=== PATIENT | female | born 1950 | race Caucasian/White ===

== ENCOUNTER 2018-10-18 15:14 | Emergency (ER) | payer OTHER ==
--- NOTE | 2018-10-18 16:15 | RAD REPORT ---
EXAM DESCRIPTION: RAD - Foot Left 3 View - 10/18/2018 4:02 pm CLINICAL HISTORY: Left Foot pain status post injury FINDINGS: No fracture or dislocation is seen.
--- NOTE | 2018-10-18 16:25 | ER ---
Nurse's Notes [facility] Name: Cindy Caputo Age: 68 yrs Sex: Female : 1950 Arrival Date: 10/18/2018 Time: 15:16 Bed 12 Private MD: Julio C Still R Diagnosis: Contusion of left great toe without damage to nail Presentation: 10/18 15:20 Presenting complaint: Patient states: I dropped a glass on to my left big toe and I la1 want to make sure its not broken. Transition of care: patient was not received from another setting of care. Onset of symptoms was October 18, 2018. Risk Assessment: Do you want to hurt yourself or someone else? Patient reports no desire to harm self or others. Initial Sepsis Screen: Does the patient meet any 2 criteria? No. Patient's initial sepsis screen is negative. Does the patient have a suspected source of infection? No. Patient's initial sepsis screen is negative. Care prior to arrival: None. 15:20 Method Of Arrival: Wheelchair la1 15:20 Acuity: COREY 4 la1 Historical: - Allergies: 15:19 PENICILLINS; la1 15:19 Keflex; la1 15:19 Doxycycline; la1 15:19 Tetracycline; la1 15:19 Feldene; la1 15:19 lodine; la1 - PMHx: 15:19 ankylosing spondylitis; Hypothyroidism; GERD; la1 - Immunization history:: Adult Immunizations up to date. - Social history:: Smoking status: Patient/guardian denies using tobacco. - Ebola Screening: : No symptoms or risks identified at this time. Screenin:22 Abuse screen: Denies threats or abuse. Denies injuries from another. Nutritional la1 screening: No deficits noted. Tuberculosis screening: No symptoms or risk factors identified. Fall Risk None identified. Assessment: 15:22 General: Appears in no apparent distress. Behavior is calm, cooperative. Pain: la1 Complains of pain in left first toe. Neuro: Level of Consciousness is awake, alert, obeys commands, Oriented to person, place, time, situation. Cardiovascular: Capillary refill < 3 seconds Patient's skin is warm and dry. Respiratory: Airway is patent Respiratory effort is even, unlabored. GI: No signs and/or symptoms were reported involving the gastrointestinal system. : No signs and/or symptoms were reported regarding the genitourinary system. Musculoskeletal: Swelling present in left first toe. 16:15 Reassessment: Patient appears in no apparent distress at this time. Patient and/or hb family updated on plan of care and expected duration. Pain level reassessed. Patient is alert, oriented x 3, equal unlabored respirations, skin warm/dry/pink. Vital Signs: 15:21 Pulse 72; Resp 18; Temp 97.1; Pulse Ox 98% on R/A; Weight 68.95 kg; Height 5 ft. 4 in. la1 (162.56 cm); 15:23 BP 203 / 63; la1 15:21 Body Mass Index 26.09 (68.95 kg, 162.56 cm) la1 ED Course: 15:16 Patient arrived in ED. sb2 15:16 Julio C Still MD is Private Physician. sb2 15:20 Triage completed. la1 15:20 Arm band placed on left wrist. la1 15:22 Diaz Clinton RN is Primary Nurse. la1 15:22 Lona Bucio FNP-C is PHCP. kb 15:22 Alejandro Olivares MD is Attending Physician. kb 15:23 Call light in reach. la1 16:02 Foot Left 3 View XRAY In Process Unspecified. EDMS 16:49 No provider procedures requiring assistance completed. Patient did not have IV access hb during this emergency room visit. Administered Medications: No medications were administered Outcome: 16:25 Discharge ordered by MD. kb 16:49 Discharged to home ambulatory, with family. 16:49 Condition: stable 16:49 Discharge instructions given to patient, Instructed on discharge instructions, follow up and referral plans. medication usage, Demonstrated understanding of instructions, follow-up care, medications. 16:49 Patient left the ED. hb Signatures: Dispatcher [employer] EDMS Lona Bucio FNP-C FNP-Diaz Sanchez RN RN la1 Carla Craven RN RN hb Billeau, Sheri sb2
--- NOTE | 2018-10-18 16:25 | EDPHYS ---
Physician Documentation [facility] Name: Cindy Caputo Age: 68 yrs Sex: Female : 1950 Arrival Date: 10/18/2018 Time: 15:16 Bed 12 Private MD: Julio C Still R ED Physician Alejandro Olivares HPI: 10/18 15:40 This 68 yrs old Female presents to ER via Wheelchair with complaints of Toe kb Injury. 15:40 The patient presents with a contusion, pain, swelling, tenderness. The complaints kb affect the left foot. Context: The problem was sustained at home, resulted from a heavy object falling, a cup or glass, the patient can fully bear weight, the patient is able to ambulate. Onset: The symptoms/episode began/occurred this morning. Modifying factors: The symptoms are alleviated by nothing, the symptoms are aggravated by nothing. Associated signs and symptoms: Pertinent positives: swelling, Pertinent negatives: calf tenderness, fever, nausea, numbness, rash, tingling, vomiting, warmth, weakness. Severity of symptoms: At their worst the symptoms were moderate, in the emergency department the symptoms are unchanged. The patient has not experienced similar symptoms in the past. The patient has not recently seen a physician. Historical: - Allergies: 15:19 PENICILLINS; la1 15:19 Keflex; la1 15:19 Doxycycline; la1 15:19 Tetracycline; la1 15:19 Feldene; la1 15:19 lodine; la1 - PMHx: 15:19 ankylosing spondylitis; Hypothyroidism; GERD; la1 - Immunization history:: Adult Immunizations up to date. - Social history:: Smoking status: Patient/guardian denies using tobacco. - Ebola Screening: : No symptoms or risks identified at this time. ROS: 15:39 Constitutional: Negative for fever, chills, and weight loss, Cardiovascular: Negative kb for chest pain, palpitations, and edema, Respiratory: Negative for shortness of breath, cough, wheezing, and pleuritic chest pain, Abdomen/GI: Negative for abdominal pain, nausea, vomiting, diarrhea, and constipation, Back: Negative for injury and pain, : Negative for injury, bleeding, discharge, and swelling, Skin: Negative for injury, rash, and discoloration, Neuro: Negative for headache, weakness, numbness, tingling, and seizure. 15:39 MS/extremity: Positive for pain, swelling, tenderness, of the left first toe. Exam: 15:39 Constitutional: This is a well developed, well nourished patient who is awake, alert, kb and in no acute distress. Head/Face: Normocephalic, atraumatic. Chest/axilla: Normal chest wall appearance and motion. Nontender with no deformity. No lesions are appreciated. Cardiovascular: Regular rate and rhythm with a normal S1 and S2. No gallops, murmurs, or rubs. Normal PMI, no JVD. No pulse deficits. Respiratory: Lungs have equal breath sounds bilaterally, clear to auscultation and percussion. No rales, rhonchi or wheezes noted. No increased work of breathing, no retractions or nasal flaring. Abdomen/GI: Soft, non-tender, with normal bowel sounds. No distension or tympany. No guarding or rebound. No evidence of tenderness throughout. Skin: Warm, dry with normal turgor. Normal color with no rashes, no lesions, and no evidence of cellulitis. Neuro: Awake and alert, GCS 15, oriented to person, place, time, and situation. Cranial nerves II-XII grossly intact. Motor strength 5/5 in all extremities. Sensory grossly intact. Cerebellar exam normal. Normal gait. 15:39 Musculoskeletal/extremity: Extremities: grossly normal except: noted in the left first toe: contusion, pain, swelling, tenderness, ROM: intact in all extremities, Circulation is intact in all extremities. Sensation intact. Weight bearing: able to fully bear weight. Vital Signs: 15:21 Pulse 72; Resp 18; Temp 97.1; Pulse Ox 98% on R/A; Weight 68.95 kg; Height 5 ft. 4 in. la1 (162.56 cm); 15:23 BP 203 / 63; la1 15:21 Body Mass Index 26.09 (68.95 kg, 162.56 cm) la1 MDM: 15:23 Patient medically screened. kb 15:39 Data reviewed: vital signs, nurses notes. Data interpreted: Pulse oximetry: on room air kb is 98 %. Interpretation: normal. 16:24 Counseling: I had a detailed discussion with the patient and/or guardian regarding: the kb historical points, exam findings, and any diagnostic results supporting the discharge/admit diagnosis, radiology results, the need for outpatient follow up, a family practitioner, to return to the emergency department if symptoms worsen or persist or if there are any questions or concerns that arise at home. 10/18 15:28 Order name: Foot Left 3 View XRAY; Complete Time: 16:18 kb Administered Medications: No medications were administered Disposition: 17:26 Co-signature as Attending Physician, Alejandro Olivares MD. rn Disposition: 10/18/18 16:25 Discharged to Home. Impression: Contusion of left great toe without damage to nail. - Condition is Stable. - Discharge Instructions: Foot Contusion, [id number]. - Medication Reconciliation Form, Thank You Letter, Antibiotic Education, Prescription Opioid Use form. - Follow up: Emergency Department; When: As needed; Reason: Worsening of condition. Follow up: Private Physician; When: 2 - 3 days; Reason: Recheck today's complaints, Continuance of care, Re-evaluation by your physician. Signatures: Dispatcher [employer] EDMS Lona Bucio, ABRASIVE MIXER-C ABRASIVE MIXER-Ckb Alejandro Olivares MD MD rn Attema, Lee, RN RN la1 Carla Craven RN RN hb Corrections: (The following items were deleted from the chart) 16:49 16:25 10/18/2018 16:25 Discharged to Home. Impression: Contusion of left great toe hb without damage to nail. Condition is Stable. Forms are Medication Reconciliation Form, Thank You Letter, Antibiotic Education, Prescription Opioid Use. Follow up: Emergency Department; When: As needed; Reason: Worsening of condition. Follow up: Private Physician; When: 2 - 3 days; Reason: Recheck today's complaints, Continuance of care, Re-evaluation by your physician. kb
== END 2018-10-18 16:49 | disposition home or self-care (01) ==
LOC: ER 15:14
DX: S90.112A Contusion of left great toe without damage to nail, initial encounter (principal); W20.8XXA Other cause of strike by thrown, projected or falling object, initial encounter; Y92.009 Unspecified place in unspecified non-institutional (private) residence as the place of occurrence of the external cause
CPT/HCPCS: 99283

== ENCOUNTER 2024-08-25 18:09 | Emergency (ER) | payer OTHER, MEDICARE ==
[2024-08-25] MEDS ORDERED: KETOROLAC 30 MG/ML INJ ONE (19:14)
--- NOTE | 2024-08-25 19:46 | EDPHYS ---
Physician Documentation [facility] Name: Cindy Caputo Age: 74 yrs Sex: Female : 1950 Arrival Date: 08/25/2024 Time: 18:09 Bed 23 Private MD: ED Physician Alejandro Olivares HPI: 08/25 19:44 This 74 yrs old Female presents to ER via Ambulatory with complaints of Fall Injury, kb Shoulder Pain. 19:44 Pt is a 74 year old female who presents for left shoulder pain after falling. States kb she was getting up from a table where she was wrapping presents and her foot got caught causing her to fall. States she hit her left shoulder on a table then fell to the ground. Denies head injury or loc. Denies any other pain. . Historical: - Allergies: 18:19 Doxycycline; tm6 18:19 Feldene; tm6 18:19 Tetracycline; tm6 18:19 Keflex; tm6 18:19 Lodine; tm6 18:19 PENICILLINS; tm6 - PMHx: 18:19 GERD; Hypothyroidism; Ankylosing Spondylitis; tm6 - PSHx: 18:19 cataracts (Ankylosing Spondylitis); knee (Ankylosing Spondylitis); D\T\C (Ankylosing tm6 Spondylitis); tubal ligation (Ankylosing Spondylitis); - Immunization history:: Flu vaccine is up to date. - Infectious Disease History:: Denies. - Social history:: Smoking status: Patient denies any tobacco usage or history of. ROS: 19:42 Constitutional: As per HPI kb Exam: 19:42 Constitutional: This is a well developed, well nourished patient who is awake, alert, kb and in no acute distress. Head/Face: Normocephalic, atraumatic. ENT: Moist Mucous membranes Neck: Trachea midline and no cervical lymphadenopathy. Supple, full range of motion without nuchal rigidity, or vertebral point tenderness. No Meningismus. Cardiovascular: Regular rate Respiratory: Respirations even and unlabored. No increased work of breathing. Talking in full sentences Skin: Warm, dry with normal turgor. Normal color. Neuro: Awake and alert, GCS 15, oriented to person, place, time, and situation. 19:42 Musculoskeletal/extremity: Extremities: grossly normal except: noted in the anterior aspect of left shoulder: decreased ROM, pain, tenderness, ROM: limited active range of motion, limited active range of motion due to pain, Circulation is intact in all extremities. Sensation intact. Vital Signs: 18:17 Temp 97.7(O); tm6 18:18 BP 207 / 73; Pulse 73; Resp 18; Pulse Ox 96% ; MAP 110 mmHg; Weight 68.04 kg; Height 5 tm6 ft. 4 in. ; Pain 8/10; 20:55 BP 186 / 70; Pulse 72; Resp 18; Temp 98.1; Pulse Ox 97% ; me1 18:18 Body Mass Index 25.75 (68.04 kg, 162.56 cm) tm6 18:18 Pain Scale: Adult tm6 MDM: 18:25 Medical Screening Exam initiated kb 19:43 Differential diagnosis: contusion, fracture, sprain. Data reviewed: vital signs, nurses kb notes. Counseling: I had a detailed discussion with the patient and/or guardian regarding the historical points, exam findings, and any diagnostic results supporting the discharge/admit diagnosis, radiology results, the need for outpatient follow up, a orthopedic surgeon, to return to the emergency department if symptoms worsen or persist or if there are any questions or concerns that arise at home. 19:46 Independent interpretation of the following test(s) in the Emergency Department X-Ray: kb My interpretation is displaced fracture proximal humerus. 08/25 18:29 Order name: Humerus Left XRAY; Complete Time: 19:53 kb 08/25 19:38 Order name: Sling; Complete Time: 20:55 kb Administered Medications: 19:16 Drug: Ketorolac IM 30 mg IM once Route: IM; Site: right deltoid; me1 19:36 Follow up: Response: No adverse reaction; Pain is decreased me1 19:42 CANCELLED (Duplicate Order): [id number] mg PO once kb 19:53 Drug: traMADol PO 50 mg PO once Route: PO; me1 20:55 Follow up: Response: No adverse reaction; Pain is decreased me1 Disposition: 08/26 16:16 Co-signature as Attending Physician, Alejandro Olivares MD I reviewed the patient's care rn provided by the Advanced Practice Provider and agree with the diagnosis and treatment plan. Disposition Summary: 08/25/24 19:45 Discharge Ordered Notes: Location: Home kb Condition: Stable kb Diagnosis - Displaced fracture of proximal humerus, left kb - Fall on same level, unspecified kb Followup: kb - With: Emergency Department - When: As needed - Reason: Worsening of condition Followup: kb - With: Private Physician - When: 2 - 3 days - Reason: Recheck today's complaints, Continuance of care, Re-evaluation by your physician Discharge Instructions: - Discharge Summary Sheet kb - Humerus Fracture Treated With ORIF kb - Humerus Fracture Treated With Immobilization, [id number] kb Forms: - Medication Reconciliation Form kb - Antibiotic Education kb - Prescription Opioid Use kb - Patient Portal Instructions kb - Leadership Thank You Letter kb Prescriptions: - Tramadol 50 mg Oral Tablet - take 1 tablet ORAL route every 8 hours as needed; 12 tablet; Refills: 0, kb Product Selection Permitted Signatures: Dispatcher [employer] EDMS Lona Bucio FNP-C FNP-Alejandro Morrissey MD MD rn Eddleman, Michelle, RN RN me1 Armin Coreas RN RN tm6 Corrections: (The following items were deleted from the chart) 08/25 19:42 19:41 traMADol PO 25 mg PO once ordered. kb kb
--- NOTE | 2024-08-25 19:46 | ER ---
Nurse's Notes [facility] Name: Cindy Caputo Age: 74 yrs Sex: Female : 1950 Arrival Date: 08/25/2024 Time: 18:09 Bed 23 Private MD: Diagnosis: Displaced fracture of proximal humerus, left;Fall on same level, unspecified Presentation: 08/25 18:18 Coronavirus screen: Client denies travel out of the [place] in the last 14 days. Ebola tm6 Screen: Patient negative for fever greater than or equal to 101.5 degrees Fahrenheit, and additional compatible Ebola Virus Disease symptoms Patient denies exposure to infectious person. Patient denies travel to an Ebola-affected area in the 21 days before illness onset. No symptoms or risks identified at this time. Risk Assessment: Do you want to hurt yourself or someone else? Patient reports no desire to harm self or others. 18:18 Method Of Arrival: Ambulatory tm6 18:20 Chief complaint: Patient states: my foot got hung on the table and I spun around and tm6 fell down hard on the coffee table, then to the floor on my back. Left arm in a lot of pain. Great pain to move. Initial Sepsis Screen: Does the patient meet any 2 criteria? No. Patient's initial sepsis screen is negative. Does the patient have a suspected source of infection? No. Patient's initial sepsis screen is negative. Onset of symptoms was August 25, 2024 at 18:00. 18:20 Acuity: COREY 4 tm6 Triage Assessment: 18:20 General: Appears in no apparent distress. Behavior is calm, cooperative. Pain: tm6 Complains of pain in left bicep Pain currently is 8 out of 10 on a pain scale. EENT: No signs and/or symptoms were reported regarding the EENT system. Neuro: Level of Consciousness is awake, alert, obeys commands, Oriented to person, place, time, situation. Cardiovascular: Patient's skin is warm and dry. Respiratory: Airway is patent Respiratory effort is even, unlabored, Respiratory pattern is regular, symmetrical. GI: No signs and/or symptoms were reported involving the gastrointestinal system. Abdomen is flat, non-distended. : No signs and/or symptoms were reported regarding the genitourinary system. Derm: No signs and/or symptoms reported regarding the dermatologic system. Musculoskeletal: Reports pain in left arm Pain is 8 out of 10 on a pain scale. Historical: - Allergies: 18:19 Doxycycline; tm6 18:19 Feldene; tm6 18:19 Tetracycline; tm6 18:19 Keflex; tm6 18:19 Lodine; tm6 18:19 PENICILLINS; tm6 - PMHx: 18:19 GERD; Hypothyroidism; Ankylosing Spondylitis; tm6 - PSHx: 18:19 cataracts (Ankylosing Spondylitis); knee (Ankylosing Spondylitis); D\T\C (Ankylosing tm6 Spondylitis); tubal ligation (Ankylosing Spondylitis); - Immunization history:: Flu vaccine is up to date. - Infectious Disease History:: Denies. - Social history:: Smoking status: Patient denies any tobacco usage or history of. Screenin:15 [facility] ED Fall Risk Assessment (Adult) History of falling in the last 3 months, me1 including since admission Yes- single mechanical fall (1 pt) Confusion or Disorientation No (0 pts) Intoxicated or Sedated No (0 pts) Impaired Gait No (0 pts) Mobility Assist Device Used No (0 pt) Altered Elimination No (0 pt) Score/Fall Risk Level 0 - 2 = Low Risk Maintained a safe environment, Provided non-skid footwear, Hourly rounding (assess needs \T\ fall precautionary measures) done. Abuse screen: Denies threats or abuse. Nutritional screening: No deficits noted. Tuberculosis screening: No symptoms or risk factors identified. Assessment: 19:15 General: Appears uncomfortable, well groomed, well developed, well nourished, Behavior me1 is calm, cooperative, appropriate for age, Reports my foot got hung on the table and I spun around and fell down hard on the coffee table, then to the floor on my back. Left arm in a lot of pain. Great pain to move. Pain: Complains of pain in anterior aspect of left shoulder and left arm and left bicep Pain does not radiate. Pain currently is 7 out of 10 on a pain scale. Quality of pain is described as sharp, Pain began suddenly, Is continuous. Neuro: Level of Consciousness is awake, alert, obeys commands, Oriented to person, place, time, situation, Appropriate for age. Cardiovascular: Patient's skin is warm and dry. Respiratory: Airway is patent Respiratory effort is even, unlabored, Respiratory pattern is regular, symmetrical. GI: No signs and/or symptoms were reported involving the gastrointestinal system. : No signs and/or symptoms were reported regarding the genitourinary system. EENT: No signs and/or symptoms were reported regarding the EENT system. Derm: Skin is intact, is healthy with good turgor, Skin is pink, warm \T\ dry. Musculoskeletal: Reports pain in anterior aspect of left shoulder and left arm and left bicep. Injury Description: my foot got hung on the table and I spun around and fell down hard on the coffee table, then to the floor on my back. Left arm in a lot of pain. Great pain to move. 20:09 Reassessment: Discharge delayed as we dont have a medium sling in ER. Called rahel Chavis me1 truck shop supervisor, for a medium sling. Vital Signs: 18:17 Temp 97.7(O); tm6 18:18 BP 207 / 73; Pulse 73; Resp 18; Pulse Ox 96% ; MAP 110 mmHg; Weight 68.04 kg; Height 5 tm6 ft. 4 in. ; Pain 8/10; 20:55 BP 186 / 70; Pulse 72; Resp 18; Temp 98.1; Pulse Ox 97% ; me1 18:18 Body Mass Index 25.75 (68.04 kg, 162.56 cm) tm6 18:18 Pain Scale: Adult tm6 ED Course: 18:12 Patient arrived in ED. mr 18:17 Arm band placed on right wrist. tm6 18:21 Triage completed. tm6 18:24 [facility]C [facility]. kb 18:24 Alejandro Olivares MD is Attending Physician. kb 19:01 Humerus Left XRAY In Process Unspecified. EDMS 19:12 Marilee Healy, RONALD is Primary Nurse. me1 19:15 Patient has correct armband on for positive identification. Bed in low position. Call me1 light in reach. Side rails up X2. Provided Education on: POC. Verbalized understanding.. Client placed on continuous cardiac and pulse oximetry monitoring. NIBP monitoring applied. Pulse ox on. NIBP on. 19:15 No provider procedures requiring assistance completed. Patient did not have IV access me1 during this emergency room visit. Administered Medications: 19:16 Drug: Ketorolac IM 30 mg IM once Route: IM; Site: right deltoid; me1 19:36 Follow up: Response: No adverse reaction; Pain is decreased me1 19:42 CANCELLED (Duplicate Order): [id number] mg PO once kb 19:53 Drug: traMADol PO 50 mg PO once Route: PO; me1 20:55 Follow up: Response: No adverse reaction; Pain is decreased me1 Medication: 19:15 VIS not applicable for this client. me1 Outcome: 19:45 Discharge ordered by . kb 20:55 Discharged to home ambulatory, with significant other, me1 20:55 Condition: stable 20:55 Discharge instructions given to patient, significant other, Instructed on discharge instructions, follow up and referral plans. medication usage, Demonstrated understanding of instructions, follow-up care, medications, Prescriptions given X 1, 20:56 Patient left the ED. me1 Signatures: Dispatcher [employer] EDLona Smith, MUSEUM ARCHIVIST-C MUSEUM ARCHIVIST-Ckb Latia Almeida, Lul Mccarty mr Marilee Healy, RN RN me1 Armin Coreas RN RN tm6 Corrections: (The following items were deleted from the chart) 20:12 18:20 Chief complaint: Patient states: my foot got hung on the table and I spun around me1 and fell down hard on the coffee table, then to the floor on my back. Left arm in a lot of pain. Great pain to move. tm6 20:15 20:09 Reassessment: No medium sling in ER. Called [place], supervisor [employer], for a medium ia1 sling. me1
--- NOTE | 2024-08-25 19:50 | RAD REPORT ---
Exam:Humerus Left CLINICAL HISTORY: Left arm pain FINDINGS: Moderately displaced fracture humeral neck which is impacted. Humeral head also appears involved. No dislocation seen
[2024-08-25] MEDS ORDERED: TRAMADOL HCL 50 MG TAB ONE (19:52)
[2024-08-25 21:35] VITALS: BP 186/70; TEMP 98.1; O2SAT 97
== END 2024-08-25 20:56 | disposition home or self-care (01) ==
LOC: ER 18:09
DX: S42.202A Unspecified fracture of upper end of left humerus, initial encounter for closed fracture (principal); W18.30XA Fall on same level, unspecified, initial encounter
CPT/HCPCS: 96372; 99284

== ENCOUNTER 2024-09-10 20:28 | Emergency (ER) | payer OTHER, MEDICARE ==
[2024-09-10] MEDS ORDERED: ONDANSETRON 4 MG (ODT) TAB ONE ×2 (21:09→21:23)
[2024-09-10] MEDS ORDERED: MORPHINE 4 MG/ML SYR ONE (21:09)
--- NOTE | 2024-09-10 22:13 | RAD REPORT ---
EXAMINATION: US LEFT UPPER EXTREMITY VENOUS DOPPLER CLINICAL INDICATION: Pain;Swelling TECHNIQUE: Complete bilateral duplex sonography of the LEFT upper extremity veins was performed. The examination included compression for vein patency, color Doppler imaging and flow augmentation in response to distal compression of the internal jugular, brachiocephalic, subclavian, axillary, brachi al, radial, ulnar, cephalic and basilic veins. COMPARISON: No prior exam. FINDINGS: Duplex sonography testing of the veins of the LEFT upper extremity was performed. Color flow imaging shows all veins to be compressible with [id number] color filling. Pulsatile and phasic flow is present within all upper extremity deep and superficial veins examined. IMPRESSION: There is no deep vein or superficial vein thrombosis.
--- NOTE | 2024-09-10 22:21 | ER ---
Nurse's Notes [facility] Name: Cindy Caputo Age: 74 yrs Sex: Female : 1950 Arrival Date: 09/10/2024 Time: 20:28 Bed IW1 Private MD: Diagnosis: Post-traumatic swelling and ecchymosis, left upper extremity Presentation: 09/10 20:38 Chief complaint: Patient states: seen 2 weeks ago for broken arm. saw ortho and have a lg3 CT scheduled next week and left arm is still swollen and its bruising really bad. my cat started acting differently and smelling me so i want to make sure my arm is ok. Coronavirus screen: Client denies travel out of the [place] in the last 14 days. At this time, the client does not indicate any symptoms associated with coronavirus-19. Ebola Screen: No symptoms or risks identified at this time. Initial Sepsis Screen: Does the patient meet any 2 criteria? No. Patient's initial sepsis screen is negative. Does the patient have a suspected source of infection? No. Patient's initial sepsis screen is negative. Risk Assessment: Do you want to hurt yourself or someone else? Patient reports no desire to harm self or others. Onset of symptoms was September 10, 2024. 20:38 Method Of Arrival: Ambulatory lg3 20:38 Acuity: COREY 4 lg3 Triage Assessment: 20:43 General: Appears in no apparent distress. comfortable, Behavior is cooperative, lg3 anxious. Pain: Complains of pain in left arm Pain currently is 3 out of 10 on a pain scale. EENT: No deficits noted. No signs and/or symptoms were reported regarding the EENT system. Neuro: No deficits noted. [place]ral Agitation-Sedation Scale (RASS): 0 - Alert and Calm Level of Consciousness is awake, alert, obeys commands, Oriented to person, place, time, situation. Cardiovascular: No deficits noted. Denies chest pain, shortness of breath, Capillary refill < 3 seconds Clubbing of nail beds is absent JVD is absent Patient's skin is warm and dry. Respiratory: No deficits noted. Airway is patent Respiratory effort is even, unlabored, Respiratory pattern is regular, symmetrical. GI: No deficits noted. No signs and/or symptoms were reported involving the gastrointestinal system. : No signs and/or symptoms were reported regarding the genitourinary system. Derm: Skin is intact, is healthy with good turgor, Skin is dry, Skin is normal, Skin temperature is warm Bruising that is dark purple, on left antecubital area and dorsal aspect of left forearm Reports bruising to left arm. Musculoskeletal: Circulation, motion, and sensation intact. Capillary refill < 3 seconds, Swelling present in left arm Reports pain in left arm. Historical: - Allergies: 20:43 Doxycycline; lg3 20:43 Feldene; lg3 20:43 Keflex; lg3 20:43 Lodine; lg3 20:43 PENICILLINS; lg3 20:43 Tetracycline; lg3 - Home Meds: 20:43 sulfasalazine 500 mg oral tablet [Active]; marily [Active]; Prilosec Oral [Active]; lg3 Synthroid 100 mcg Oral tablet [Active]; - PMHx: 20:43 Ankylosing Spondylitis; GERD; Hypothyroidism; lg3 - PSHx: 20:43 cataracts (si); D\T\C (si); knee (si); tubal ligation (si); lg3 - Immunization history:: Adult Immunizations up to date. - Infectious Disease History:: Denies. - Social history:: Smoking status: Patient denies any tobacco usage or history of. Patient/guardian denies using alcohol, street drugs. Screenin:27 [facility] ED Fall Risk Assessment (Adult) History of falling in the last 3 months, vc1 including since admission Yes- physiologic fall (2 pts) Confusion or Disorientation No (0 pts) Intoxicated or Sedated No (0 pts) Impaired Gait Yes (1 pt) Mobility Assist Device Used No (0 pt) Altered Elimination No (0 pt) Score/Fall Risk Level 0 - 2 = Low Risk Oriented to surroundings, Maintained a safe environment, Educated pt \T\ family on fall prevention, incl call for assistance when getting out of bed. Abuse screen: Denies threats or abuse. Nutritional screening: No deficits noted. Tuberculosis screening: No symptoms or risk factors identified. Assessment: 22:27 General: Appears in no apparent distress. comfortable, Behavior is calm, cooperative. ss Pain: Complains of pain in left arm Pain currently is 2 out of 10 on a pain scale. Is continuous. Neuro: Level of Consciousness is awake, alert, obeys commands, Oriented to person, place, time, situation. Cardiovascular: Pulses are palpable in right radial artery and left radial artery. Respiratory: Airway is patent Respiratory effort is even, unlabored, Respiratory pattern is regular, symmetrical. Derm: Skin is intact, is healthy with good turgor, Skin is pink, warm \T\ dry. normal. Vital Signs: 20:38 BP 181 / 75; Pulse 88; Resp 16 S; Temp 98.2(O); Pulse Ox 98% on R/A; Weight 68.04 kg lg3 (R); Height 5 ft. 4 in. (R); Pain 3/10; 20:38 Body Mass Index 25.75 (68.04 kg, 162.56 cm) lg3 20:38 Pain Scale: Adult lg3 ED Course: 20:30 Patient arrived in ED. jj6 20:35 Gabi Maloney PA-C is PHCP. sb4 20:35 Kyler Mcintyre MD is Attending Physician. sb4 20:43 Triage completed. lg3 20:43 Arm band placed on right wrist. lg3 22:10 UPPER EXTREMITY VENOUS UNILATE In Process Unspecified. EDMS 22:19 Rodolfo Jacobs MD is Referral Physician. sb4 22:27 treated from triage. Provided Education on: continue to use sling. vc1 22:27 No provider procedures requiring assistance completed. Patient did not have IV access vc1 during this emergency room visit. Administered Medications: 21:35 Drug: morphine IM 4 mg IM once Route: IM; Site: right deltoid; vc1 22:27 Follow up: Response: No adverse reaction; Pain is decreased; RASS: Alert and Calm (0) ss 21:35 Drug: Ondansetron Oral Disintegrating Tablet Oral Disintegrating Tablet 4 mg PO once vc1 Route: PO; 22:26 Follow up: Response: No adverse reaction ss Medication: 22:27 VIS not applicable for this client. ss Outcome: 22:20 Discharge ordered by . sb4 22:27 Discharged to home ambulatory, with family, ss 22:27 Condition: good 22:27 Discharge instructions given to patient, family, Instructed on discharge instructions, follow up and referral plans. Demonstrated understanding of instructions, follow-up care, 22:28 Patient left the ED. ss Signatures: Dispatcher [employer] EDEmmanuelle Liriano, RN RN ss Dayanara Chandler RN RN lg3 Jyoti Zafar jj6 Ashley Boland RN RN vc1 Gabi Maloney PA-C PA-C sb4 Corrections: (The following items were deleted from the chart) 20:43 Derm: Reports bruising to left arm lg3 lg3 20:43 Musculoskeletal: Circulation, motion, and sensation intact. Capillary refill < 3 lg3 seconds, Reports pain in left arm lg3 20:43 Musculoskeletal: Swelling present in left arm lg3 lg3
--- NOTE | 2024-09-10 22:21 | EDPHYS ---
Physician Documentation [facility] Name: Cindy Caputo Age: 74 yrs Sex: Female : 1950 Arrival Date: 09/10/2024 Time: 20:28 Bed IW1 Private MD: ED Physician Kyler Mcintyre HPI: 09/11 00:32 This 74 yrs old Female presents to ER via Ambulatory with complaints of Arm Injury, Arm sb4 Pain. 00:39 Patient states that she fell 6 days ago and sustained a humerus fracture. She was seen sb4 here and placed in a sling. She has follow-up with Ortho and a CT scheduled soon. States that she is concerned because her arm has become very swollen and bruised. She states that her cat was sniffing at it earlier and is concerned about an infection. States her pain is controlled with tramadol. She denies any fever. Denies any numbness or tingling. Historical: - Allergies: 09/10 20:43 Doxycycline; lg3 20:43 Feldene; lg3 20:43 Keflex; lg3 20:43 Lodine; lg3 20:43 PENICILLINS; lg3 20:43 Tetracycline; lg3 - Home Meds: 20:43 sulfasalazine 500 mg oral tablet [Active]; marily [Active]; Prilosec Oral [Active]; lg3 Synthroid 100 mcg Oral tablet [Active]; - PMHx: 20:43 Ankylosing Spondylitis; GERD; Hypothyroidism; lg3 - PSHx: 20:43 cataracts (si); D\T\C (si); knee (si); tubal ligation (si); lg3 - Immunization history:: Adult Immunizations up to date. - Infectious Disease History:: Denies. - Social history:: Smoking status: Patient denies any tobacco usage or history of. Patient/guardian denies using alcohol, street drugs. ROS: 09/11 00:39 Constitutional: Negative for fever, chills, and weight loss, sb4 MS/extremity: Positive for decreased range of motion, ecchymosis, pain, swelling, tenderness, of the left arm, All other systems are negative, Exam: 00:39 Constitutional: This is a well developed, well nourished patient who is awake, alert, sb4 and in no acute distress. Head/Face: Normocephalic, atraumatic. Eyes: Extra-ocular motions intact. Periorbital areas with no swelling, redness, or edema. ENT: Mucous membranes moist. Respiratory: No increased work of breathing, no retractions or nasal flaring. 00:39 Musculoskeletal/extremity: Moderate amount of swelling and bruising left upper extremity in various stages of healing. 00:39 Skin: Vital Signs: 09/10 20:38 BP 181 / 75; Pulse 88; Resp 16 S; Temp 98.2(O); Pulse Ox 98% on R/A; Weight 68.04 kg lg3 (R); Height 5 ft. 4 in. (R); Pain 3/10; 20:38 Body Mass Index 25.75 (68.04 kg, 162.56 cm) lg3 20:38 Pain Scale: Adult lg3 MDM: 20:47 Medical Screening Exam initiated sb4 09/11 00:39 Data reviewed: vital signs, nurses notes, radiologic studies, and as a result, I will sb4 discharge patient. Counseling: I had a detailed discussion with the patient and/or guardian regarding the historical points, exam findings, and any diagnostic results supporting the discharge/admit diagnosis, radiology results, the need for outpatient follow up, a orthopedic surgeon, to return to the emergency department if symptoms worsen or persist or if there are any questions or concerns that arise at home. 09/10 21:11 Order name: UPPER EXTREMITY VENOUS UNILATE; Complete Time: 22:18 EDMS Administered Medications: 09/10 21:35 Drug: morphine IM 4 mg IM once Route: IM; Site: right deltoid; vc1 22:27 Follow up: Response: No adverse reaction; Pain is decreased; RASS: Alert and Calm (0) ss 21:35 Drug: Ondansetron Oral Disintegrating Tablet Oral Disintegrating Tablet 4 mg PO once vc1 Route: PO; 22:26 Follow up: Response: No adverse reaction ss Disposition: 09/11 21:03 Co-signature as Attending Physician, Kyler Mcintyre MD I agree with the assessment sp4 and plan of care. I reviewed the patient's care provided by the Advanced Practice Provider and agree with the diagnosis and treatment plan. Disposition Summary: 09/10/24 22:20 Discharge Ordered Notes: Location: Home sb4 Problem: an ongoing problem sb4 Symptoms: have improved sb4 Condition: Stable sb4 Diagnosis - Post-traumatic swelling and ecchymosis, left upper extremity sb4 Followup: sb4 - With: Rodolfo Jacobs MD - When: As needed - Reason: Recheck today's complaints, Re-evaluation by your physician Discharge Instructions: - Discharge Summary Sheet sb4 - Hematoma, [id number] sb4 - Humerus Fracture Treated With Immobilization, [id number] sb4 Forms: - Patient Portal Instructions sb4 - Leadership Thank You Letter sb4 Signatures: Dispatcher [employer] EDMS Dayanara Chandler, RN RN lg3 Ashley Boland RN RN vc1 Gabi Maloney PADaysiC PADaysiC sb4 Kyler Mcintyre MD MD sp4 Emmanuelle Monaco RN ss Corrections: (The following items were deleted from the chart) 09/10 20:56 20:56 Extremity Venous Uni [id number] ordered. EDMS EDMS
[2024-09-11 05:59] VITALS: BP 181/75; TEMP 98.2; O2SAT 98
== END 2024-09-10 22:28 | disposition home or self-care (01) ==
LOC: ER 20:28
DX: S40.022A Contusion of left upper arm, initial encounter (principal); R22.32 Localized swelling, mass and lump, left upper limb; Z88.0 Allergy status to penicillin; Z88.1 Allergy status to other antibiotic agents; Z88.8 Allergy status to other drugs, medicaments and biological substances; E03.9 Hypothyroidism, unspecified; Z79.899 Other long term (current) drug therapy
CPT/HCPCS: 93971; 96372; 99284; Q0162